=== PATIENT | male | born 1950 | race Hispanic/Latino ===

== ENCOUNTER 2021-09-08 18:36 | Inpatient (IN) | payer MEDICARE ==
[~2021-09-08] VITALS: Ht 177.8 cm; Wt 107.1 kg
[2021-09-08 18:59] LABS: EOSINOPHILS % (AUTO) 2.4 % (0.0-8.0); HEMATOCRIT 24.1 % (42-54); LYMPHOCYTES % (AUTO) 29.5 % (21.0-51.0); MEAN CORPUSCULAR HEMOGLOBIN 31.7 pg (27.0-33.0); MEAN CORPUSCULAR VOLUME 99.2 fL (79-99); MONOCYTES % (AUTO) 9.3 % (3.0-13.0); NEUTROPHILS % (AUTO) 57.6 % (40.0-77.0); PLATELET COUNT (AUTO) 185 K/uL (130-400); RED BLOOD CELL COUNT(AUTO) 2.43 MIL/uL (4.50-6.20); RED CELL DISTRIBUTION WIDTH 17.8 % (11.0-15.5); WHITE BLOOD COUNT (AUTO) 8.6 K/uL (4.8-10.8)
[2021-09-08 19:21] LABS: INFLUENZA TYPE A POSITIVE FOR TYPE A (NEG); INFLUENZA TYPE B NEGATIVE FOR TYPE B (NEG)
[2021-09-08 19:21] LABS: CREATININE 6.5 mg/dL (0.5-1.5); POTASSIUM 5.1 mmol/L (3.5-5.1)
[2021-09-08 19:25] LABS: ALBUMIN 2.7 g/dL (3.5-5.0); BILIRUBIN,TOTAL 0.5 mg/dL (0.2-1.0)
[2021-09-08] MEDS ORDERED: PANTOPRAZOLE 40 MG/VIAL IVP ONE (20:00)
[2021-09-08] MEDS ORDERED: OSELTAMIVIR PHOSPHATE 75 MG CAP PO SCH (20:00)
[2021-09-08] MEDS ORDERED: 0.9% NACL 500ML IV.SOLN 500 ML IV ONE ×2 (20:00→22:00)
[2021-09-08] MEDS ORDERED: ACETAMINOPHEN 500 MG TABLET PO ONE (20:00)
[2021-09-08] MEDS ORDERED: ALBUMIN (HUMAN) 25% 100 ML IV ONE (21:59)
[2021-09-08] MEDS ORDERED: ALBUMIN (HUMAN) 5% 250 ML IV SCH (22:00)
[2021-09-08 22:01] LABS: HEMATOCRIT 24.4 % (42-54); MEAN CORPUSCULAR HEMOGLOBIN 31.6 pg (27.0-33.0); MEAN CORPUSCULAR VOLUME 98.8 fL (79-99); RED BLOOD CELL COUNT(AUTO) 2.47 MIL/uL (4.50-6.20); RED CELL DISTRIBUTION WIDTH 17.8 % (11.0-15.5); WHITE BLOOD COUNT (AUTO) 9.3 K/uL (4.8-10.8)
[2021-09-08] MEDS ORDERED: ALBUMIN (HUMAN) 25% 50 ML IV ONE (22:02)
[2021-09-08] MEDS ORDERED: ONDANSETRON 4MG INJ IV PRN (22:30)
[2021-09-08] MEDS ORDERED: NOREPINEPHRIN 4MG/NS 250ML 250 ML IV SCH (22:30)
[2021-09-08] MEDS ORDERED: ACETAMINOPHEN 325 MG TAB PO PRN ×2 (22:30)
[2021-09-08] MEDS ORDERED: PANTOPRAZOLE 40 MG/VIAL ONE (23:13)
[2021-09-08] MEDS: PANTOPRAZOLE 40MG INJ 80 MG in 0.9%NACL 100ML 100 ML IVP SCH (23:19)
[2021-09-08] MEDS: 0.9%NACL 1000ML 1,000 ML IV SCH (23:19)
[2021-09-09] VITALS (33 sets, daily range): BP systolic 82–153; BP diastolic 35–99
[2021-09-09 02:42] LABS: HEMATOCRIT 22.7 % (42-54)
[2021-09-09] MEDS ORDERED: SUCR1TAB2 PO (03:10)
[2021-09-09] MEDS ORDERED: PANT40GR PO (03:10)
[2021-09-09] MEDS ORDERED: SERT-440 PO (03:10)
[2021-09-09] MEDS ORDERED: ATROVASTATIN PO (03:10)
[2021-09-09] MEDS ORDERED: AMIO100T4 PO (03:10)
[2021-09-09] MEDS ORDERED: LEVO50CA4 PO (03:10)
[2021-09-09] MEDS ORDERED: LISI20TA24 PO (03:10)
[2021-09-09] MEDS ORDERED: ASPI-1443 PO (03:10)
[2021-09-09] MEDS ORDERED: LINA290C PO (03:10)
[2021-09-09] MEDS ORDERED: AMLO-257 PO (03:10)
[2021-09-09] MEDS ORDERED: CLON0.1T PO (03:10)
[2021-09-09] MEDS ORDERED: FOLI1TAB85 PO (03:10)
[2021-09-09] MEDS ORDERED: COMPOUND PO MISCELLANEOUS 1 EACH MISC MISC PRN (06:30)
[2021-09-09] MEDS: INSULIN HUMULIN R 100 UNIT/ML 3ML SQ SCH ×4 (06:42→20:38)
[2021-09-09] MEDS ORDERED: PHARMACY COMMUNICATION MISC SCH (07:00)
[2021-09-09] MEDS: PANTOPRAZOLE 40MG INJ 80 MG in 0.9%NACL 100ML 100 ML IVP SCH ×2 (07:25→17:51)
[2021-09-09 07:51] LABS: HEMATOCRIT 21.2 % (42-54)
[2021-09-09] MEDS ORDERED: OSELTAMIVIR PHOSPHATE 75 MG CAP PO SCH (09:00)
[2021-09-09] MEDS ORDERED: COMPOUND IV REFRIGERATED 1 EACH IVSOLN MISC PRN (09:00)
[2021-09-09] MEDS: OCTREOTIDE ACETATE 1,250 MCG in 0.9% NACL 250ML 250 ML IV SCH (09:27)
[2021-09-09] MEDS: OSELTAMIVIR SUSP 15 MG/ML (6 CAPS/29ML) PO SCH ×2 (09:28)
[2021-09-09] MEDS: 0.9%NACL 1000ML 1,000 ML IV SCH (09:29)
[2021-09-09 15:37] LABS: HEMATOCRIT 24.6 % (42-54)
[2021-09-09] MEDS ORDERED: 0.9%NACL 1000ML 1,000 ML IV ONE (20:33)
[2021-09-09 22:30] LABS: HEMATOCRIT 25.6 % (42-54)
[2021-09-10] VITALS (28 sets, daily range): BP systolic 101–171; BP diastolic 42–83
[2021-09-10] MEDS: PANTOPRAZOLE 40MG INJ 80 MG in 0.9%NACL 100ML 100 ML IVP SCH ×2 (03:00→11:46)
[2021-09-10 03:33] LABS: HEMATOCRIT 24.4 % (42-54)
[2021-09-10 03:55] LABS: % IRON SATURATION 16.5 % (30-44)
[2021-09-10] MEDS: INSULIN HUMULIN R 100 UNIT/ML 3ML SQ SCH ×4 (06:31→20:28)
[2021-09-10 07:17] LABS: HEMATOCRIT 24.7 % (42-54); MEAN CORPUSCULAR HEMOGLOBIN 29.8 pg (27.0-33.0); MEAN CORPUSCULAR HGB CONC 30.8 g/dL (32.0-36.0); MEAN CORPUSCULAR VOLUME 96.9 fL (79-99); PLATELET COUNT (AUTO) 178 K/uL (130-400); RED BLOOD CELL COUNT(AUTO) 2.55 MIL/uL (4.50-6.20); RED CELL DISTRIBUTION WIDTH 19.4 % (11.0-15.5); WHITE BLOOD COUNT (AUTO) 8.3 K/uL (4.8-10.8)
[2021-09-10 07:19] LABS: POTASSIUM 5.6 mmol/L (3.5-5.1)
[2021-09-10] MEDS: OSELTAMIVIR SUSP 15 MG/ML (6 CAPS/29ML) PO SCH ×2 (08:11)
[2021-09-10 10:13] LABS: HEMATOCRIT 24.6 % (42-54)
[2021-09-10] MEDS ORDERED: EPOETIN ALFA-EPBX (ESRD) 10,000 UNIT/ML VIAL SQ SCH (21:00)
[2021-09-11 00:16] VITALS: BP 145/113
[2021-09-11] MEDS: PANTOPRAZOLE 40MG INJ 80 MG in 0.9%NACL 100ML 100 ML IVP SCH ×3 (00:20→23:42)
[2021-09-11 03:18] LABS: HEMATOCRIT 32.2 % (42-54)
[2021-09-11 04:30] VITALS: BP 124/61
[2021-09-11] MEDS: INSULIN HUMULIN R 100 UNIT/ML 3ML SQ SCH ×5 (06:33→21:00)
[2021-09-11 08:00] VITALS: BP 174/58
[2021-09-11] MEDS: OSELTAMIVIR SUSP 15 MG/ML (6 CAPS/29ML) PO SCH ×2 (09:00)
[2021-09-11 11:56] LABS: CREATININE 6.4 mg/dL (0.5-1.5)
[2021-09-11 12:00] VITALS: BP 148/48
[2021-09-11] MEDS ORDERED: PROPOFOL 10 MG/ML 20ML VIAL IV ONE (12:10)
[2021-09-11] MEDS ORDERED: OSELTAMIVIR PHOSPHATE 75 MG CAP PO SCH (14:00)
[2021-09-11] MEDS ORDERED: OSELTAMIVIR SUSP 15 MG/ML (6 CAPS/29ML) PO SCH ×2 (14:00)
[2021-09-11 16:00] VITALS: BP 149/70
[2021-09-11] MEDS: OCTREOTIDE ACETATE 1,250 MCG in 0.9% NACL 250ML 250 ML IV SCH (17:25)
[2021-09-11 20:00] VITALS: BP 176/71
[2021-09-11] MEDS ORDERED: INSULIN HUMULIN R 100 UNIT/ML 3ML SQ SCH (21:00)
[2021-09-12] VITALS (19 sets, daily range): BP systolic 121–185; BP diastolic 52–114
[2021-09-12] MEDS: INSULIN HUMULIN R 100 UNIT/ML 3ML SQ SCH ×2 (06:03→11:30)
[2021-09-12] MEDS: PANTOPRAZOLE 40MG INJ 80 MG in 0.9%NACL 100ML 100 ML IVP SCH (06:30)
[2021-09-12 08:33] LABS: BASOPHILS % (AUTO) 0.9 % (0.0-5.0); EOSINOPHILS % (AUTO) 5.2 % (0.0-8.0); HEMATOCRIT 34.8 % (42-54); LYMPHOCYTES % (AUTO) 30.1 % (21.0-51.0); MEAN CORPUSCULAR HEMOGLOBIN 29.4 pg (27.0-33.0); MEAN CORPUSCULAR HGB CONC 33.3 g/dL (32.0-36.0); MEAN CORPUSCULAR VOLUME 88.3 fL (79-99); NEUTROPHILS % (AUTO) 53.6 % (40.0-77.0); PLATELET COUNT (AUTO) 149 K/uL (130-400); RED BLOOD CELL COUNT(AUTO) 3.94 MIL/uL (4.50-6.20); RED CELL DISTRIBUTION WIDTH 19.8 % (11.0-15.5); WHITE BLOOD COUNT (AUTO) 6.6 K/uL (4.8-10.8)
[2021-09-12] MEDS ORDERED: PANT40TA PO (08:54)
[2021-09-12] MEDS ORDERED: OSELTAMIVIR PHOSPHATE 75 MG CAP PO SCH (10:00)
[2021-09-12] MEDS ORDERED: NA ZIRCON CYCLOSIL(LOKELMA 10GM) PO ONE (12:00)
== END 2021-09-12 19:45 | disposition home or self-care (01) | DRG 377 ==
LOC: EDH 18:36 → EDHIP 22:29 → 2CH 09-09 00:27 → 4CH 09-11 04:29
PROVIDERS: ADMIT Internal Medicine; ATTEND Internal Medicine
PROC: 30233N1 Transfusion of Nonautologous Red Blood Cells into Peripheral Vein, Percutaneous Approach (ICD-10-PCS; principal; 2021-09-09)
PROC: 5A1D70Z Performance of Urinary Filtration, Intermittent, Less than 6 Hours Per Day (ICD-10-PCS; 2021-09-10)
PROC: 5A1D70Z Performance of Urinary Filtration, Intermittent, Less than 6 Hours Per Day (ICD-10-PCS; 2021-09-12)
DX: K92.1 Melena (principal); N18.6 End stage renal disease; E43 Unspecified severe protein-calorie malnutrition; D62 Acute posthemorrhagic anemia; E72.20 Disorder of urea cycle metabolism, unspecified; I12.0 Hypertensive chronic kidney disease with stage 5 chronic kidney disease or end stage renal disease; J10.1 Influenza due to other identified influenza virus with other respiratory manifestations; I95.9 Hypotension, unspecified; E03.9 Hypothyroidism, unspecified; E11.22 Type 2 diabetes mellitus with diabetic chronic kidney disease; E11.621 Type 2 diabetes mellitus with foot ulcer; E78.00 Pure hypercholesterolemia, unspecified; I25.10 Atherosclerotic heart disease of native coronary artery without angina pectoris; I48.91 Unspecified atrial fibrillation; L97.529 Non-pressure chronic ulcer of other part of left foot with unspecified severity; Z86.73 Personal history of transient ischemic attack (TIA), and cerebral infarction without residual deficits; Z87.11 Personal history of peptic ulcer disease; Z99.2 Dependence on renal dialysis; Z79.82 Long term (current) use of aspirin; Z79.899 Other long term (current) drug therapy; Z68.33 Body mass index [BMI] 33.0-33.9, adult
CPT/HCPCS: 36415; 71045; 80048; 80053; 82140; 82270; 82948; 83540; 83550; 83605; 83735; 84100; 85014; 85018; 85025; 85027; 86850; 86900; 86901; 86923; 87804; 90935; 93005; 99291; C9113; G0378; J1815; J2354; J2704; J7030; J7050; P9016; P9046; P9047